=== PATIENT | female | born 1935 | race Caucasian/White ===

== ENCOUNTER 2018-01-03 16:21 | Inpatient (IN) | payer OTHER ==
[~2018-01-03] VITALS: Ht 157.5 cm; Wt 63.5 kg
[~2018-01-03 16:21] MED LIST: ARICEPT10 MG; ARICEPT5 MG; CALTRATE 61 TAB.CHEW; CARBIDOPA LE S; CARBIDOPA-LEVO1 EA10; FLUOXETINE HCL20 MG; NAMENDA10 MG; PERCOCET 7.5-501 TAB; PLAVIX75 MG; PROTONIX40 MG; RESTORIL15 MG; RYZOLT; SERTRALINE HCL25 MG; SYNTHROID50 MCG; TESSALON PERLE100 M1 PO; TOPROL XL25 M1; TUSNEL CAPSULE1 CAP PO; ZANTAC300 MG
== END 2018-01-30 07:56 | disposition expired | DRG 871 ==
LOC: ER 16:21 → MEDJ 19:19 → MEDI 19:19 → EDBD 19:19 → SEC-K 21:15 → MEDJ 21:22
PROC: 4A033R1 Measurement of Arterial Saturation, Peripheral, Percutaneous Approach (ICD-10-PCS; principal; 2018-01-03)
PROC: 3E0F7GC Introduction of Other Therapeutic Substance into Respiratory Tract, Via Natural or Artificial Opening (ICD-10-PCS; 2018-01-03)
PROC: BW2FY0Z Computerized Tomography (CT Scan) of Neck using Other Contrast, Unenhanced and Enhanced (ICD-10-PCS; 2018-01-03)
PROC: 09JK8ZZ Inspection of Nasal Mucosa and Soft Tissue, Via Natural or Artificial Opening Endoscopic (ICD-10-PCS; 2018-01-04)
PROC: 09JK8ZZ Inspection of Nasal Mucosa and Soft Tissue, Via Natural or Artificial Opening Endoscopic (ICD-10-PCS; 2018-01-05)
PROC: 02HV33Z Insertion of Infusion Device into Superior Vena Cava, Percutaneous Approach (ICD-10-PCS; 2018-01-05)
PROC: 8E0ZXY6 Isolation (ICD-10-PCS; 2018-01-05)
PROC: 3E0436Z Introduction of Nutritional Substance into Central Vein, Percutaneous Approach (ICD-10-PCS; 2018-01-05)
PROC: 09JK8ZZ Inspection of Nasal Mucosa and Soft Tissue, Via Natural or Artificial Opening Endoscopic (ICD-10-PCS; 2018-01-06)
PROC: 09JK8ZZ Inspection of Nasal Mucosa and Soft Tissue, Via Natural or Artificial Opening Endoscopic (ICD-10-PCS; 2018-01-08)
PROC: 09JK8ZZ Inspection of Nasal Mucosa and Soft Tissue, Via Natural or Artificial Opening Endoscopic (ICD-10-PCS; 2018-01-10)
PROC: 0CJS8ZZ Inspection of Larynx, Via Natural or Artificial Opening Endoscopic (ICD-10-PCS; 2018-01-11)
PROC: 0CJY8ZZ Inspection of Mouth and Throat, Via Natural or Artificial Opening Endoscopic (ICD-10-PCS; 2018-01-11)
PROC: 09JK8ZZ Inspection of Nasal Mucosa and Soft Tissue, Via Natural or Artificial Opening Endoscopic (ICD-10-PCS; 2018-01-11)
PROC: BW2FYZZ Computerized Tomography (CT Scan) of Neck using Other Contrast (ICD-10-PCS; 2018-01-17)
PROC: BB24ZZZ Computerized Tomography (CT Scan) of Bilateral Lungs (ICD-10-PCS; 2018-01-25)
DX: A41.02 Sepsis due to Methicillin resistant Staphylococcus aureus (principal); J69.0 Pneumonitis due to inhalation of food and vomit; L02.11 Cutaneous abscess of neck; N39.0 Urinary tract infection, site not specified; E27.49 Other adrenocortical insufficiency; B37.0 Candidal stomatitis; J98.11 Atelectasis; J91.8 Pleural effusion in other conditions classified elsewhere; G20 Parkinson's disease; I10 Essential (primary) hypertension; Z74.01 Bed confinement status; F02.80 Dementia in other diseases classified elsewhere, unspecified severity, without behavioral disturbance, psychotic disturbance, mood disturbance, and anxiety; G30.8 Other Alzheimer's disease; K11.21 Acute sialoadenitis; B96.29 Other Escherichia coli [E. coli] as the cause of diseases classified elsewhere; B96.4 Proteus (mirabilis) (morganii) as the cause of diseases classified elsewhere; F32.89 Other specified depressive episodes; E03.8 Other specified hypothyroidism; J00 Acute nasopharyngitis [common cold]; J01.00 Acute maxillary sinusitis, unspecified; J32.0 Chronic maxillary sinusitis; J01.30 Acute sphenoidal sinusitis, unspecified; J32.3 Chronic sphenoidal sinusitis; Z66 Do not resuscitate; I80.8 Phlebitis and thrombophlebitis of other sites; R09.02 Hypoxemia; I46.8 Cardiac arrest due to other underlying condition; M54.5 Low back pain; D63.8 Anemia in other chronic diseases classified elsewhere; B96.5 Pseudomonas (aeruginosa) (mallei) (pseudomallei) as the cause of diseases classified elsewhere; Z22.322 Carrier or suspected carrier of Methicillin resistant Staphylococcus aureus